=== PATIENT | male | born 1985 | race Two or more races ===

== ENCOUNTER 2022-01-14 18:29 | Emergency (ER) | payer OTHER ==
[~2022-01-14] VITALS: Ht 165.1 cm; Wt 65.8 kg
[2022-01-14] MEDS ORDERED: PROTONIX40 M1 PO (18:57)
[2022-01-14] MEDS ORDERED: DICLOFENAC SODI75 MG PO (19:20)
[2022-01-14] MEDS ORDERED: BACTRIM DS TAB1 EACH PO (19:20)
== END 2022-01-14 19:43 | disposition home or self-care (01) ==
LOC: ER 18:29
DX: L73.9 Follicular disorder, unspecified (principal)